=== PATIENT | male | born 1960 | race Caucasian/White ===

== ENCOUNTER → 2017-01-19 | Outpatient (CLI) | payer BC ==
[2010-08-09 09:35] VITALS: BP 124/80
[2017-01-19 07:39] LABS: BASOPHILS # (AUTO) 0.05 10*3/UL; EOSINOPHILS # (AUTO) 0.11 10*3/UL; EOSINOPHILS % (AUTO) 2.2 % (0-8); HEMATOCRIT 40.8 % (42.0-52.0); HEMOGLOBIN 14.7 g/dL (14.0-18.0); LYMPHOCYTES # (AUTO) 1.18 10*3/uL; MEAN CORPUSCULAR HEMOGLOBIN 32.5 PG (27-31); MEAN CORPUSCULAR VOLUME 90.3 FL (80-90); MEAN PLATELET VOLUME 11.1 FL (7.4-12.2); MONOCYTES # (AUTO) 0.64 10*3/UL (0.3-0.8); MONOCYTES % (AUTO) 12.9 % (5-15); NEUTROPHILS # (AUTO) 2.98 10*3/UL; RED BLOOD COUNT 4.52 10^6/uL (4.70-6.10)
[2017-01-19 08:08] LABS: BLOOD UREA NITROGEN 21 mg/dL (7-22); BUN/CREATININE RATIO 26.25 (6-20); CALCIUM 9.5 mg/dL (8.7-10.7); CHOL/HDL RATIO 2.55 RATIO (0-4.0); EST GLOMERULAR FILTRATION > 60 (>60 ml/min/1.73m(2)); HDL CHOLESTEROL 52 mg/dL (40-150); SERUM ALBUMIN 4.1 g/dL (3.5-4.8); SERUM CHOLESTEROL 133 mg/dL (120-200)
[2017-01-19 08:10] LABS: PLATELET MORPHOLOGY COMMENT NORMAL MORPHOLOGY (NORM); RBC MORPHOLOGY COMMENT NORMAL MORPHOLOGY (NORM); WBC MORPHOLOGY COMMENT NORMAL MORPHOLOGY (NORM)
[2017-01-19 08:23] LABS: VITAMIN D 25-HYDROXY 50.3 NG/ML (30-100)
== END ==
LOC: LAB 07:22
PROVIDERS: ATTEND Internal Medicine
DX: Z00.00 Encounter for general adult medical examination without abnormal findings (principal); K90.41 Non-celiac gluten sensitivity; E78.5 Hyperlipidemia, unspecified; I10 Essential (primary) hypertension; Z12.5 Encounter for screening for malignant neoplasm of prostate
CPT/HCPCS: 80053; 80061; 82306; 85025; G0103